=== PATIENT | male | born 1955 | race Caucasian/White ===

== ENCOUNTER 2022-01-28 13:15 | Emergency (ER) | payer MEDICARE, MEDICAID ==
[~2022-01-28] VITALS: Ht 172.7 cm; Wt 68.0 kg
[2022-01-28 13:25] VITALS: BP_SYST 177
--- NOTE | 2022-01-28 14:30 | NUR ---
Patient to ER bed 4 to gown for evaluation. Side rails up.
--- NOTE | 2022-01-28 14:35 | NUR ---
ERNIE Ferguson at bedside examining patient.
--- NOTE | 2022-01-28 15:10 | NUR ---
Pt C/O SOB COVID and flu specimen completed AOX4 VSS Able to make needs known Will continue to monitor
[2022-01-28] MEDS ORDERED: ALBMDI INH (16:58)
[2022-01-28] MEDS ORDERED: PRED20TA PO (16:58)
[2022-01-28 17:05] VITALS: BP_SYST 152
--- NOTE | 2022-01-28 17:05 | NUR ---
Patient given written and verbal discharge instructions and verbalizes understanding. ER MD discussed with patient the results and treatment provided. Patient in stable condition. ID arm band removed. Rx of ventolin and prednisone given. Patient educated on pain management and to follow up with PMD. Pain Scale 0/10 Opportunity for questions provided and answered. Medication side effect fact sheet provided.
== END 2022-01-28 17:05 | disposition home or self-care (01) ==
LOC: SED 13:15
DX: J45.909 Unspecified asthma, uncomplicated (principal); R05.9 Cough, unspecified; R06.02 Shortness of breath; I10 Essential (primary) hypertension; Z79.899 Other long term (current) drug therapy; Z20.822 Contact with and (suspected) exposure to COVID-19
CPT/HCPCS: 36415; 71045; 99284